=== PATIENT | female | born 1950 | race Caucasian/White ===

== ENCOUNTER 2017-07-19 03:39 | Emergency (ER) | payer OTHER ==
[~2017-07-19] VITALS: Ht 154.9 cm; Wt 59.4 kg
[2017-07-19] MEDS ORDERED: COUMADIN 4 MG TA4 M1 (03:51)
[2017-07-19] MEDS ORDERED: MATZIM LA180 MG (03:51)
[2017-07-19] MEDS ORDERED: LISINOPRIL5 MG (03:52)
[2017-07-19] MEDS ORDERED: STOOL SOFTENER100 MG (03:52)
[2017-07-19] MEDS ORDERED: PRAVACHOL40 MG (03:53)
[2017-07-19] MEDS ORDERED: LANTUS (03:54)
[2017-07-19] MEDS ORDERED: HUMALOG KW100 UNIT/1 (03:54)
[2017-07-19] MEDS ORDERED: DOXYCYCLINE 10100 MG PO (04:00)
[2017-07-19] MEDS ORDERED: NORCO 5-325 TA1 EACH PO (04:00)
[2017-07-19 04:15] VITALS: BP 146/89
== END 2017-07-19 04:16 | disposition home or self-care (01) ==
LOC: M.ERS 03:39
DX: N76.4 Abscess of vulva (principal); N76.2 Acute vulvitis; J44.9 Chronic obstructive pulmonary disease, unspecified; I10 Essential (primary) hypertension; F17.210 Nicotine dependence, cigarettes, uncomplicated; Z90.49 Acquired absence of other specified parts of digestive tract